=== PATIENT | female | born 1995 | race Caucasian/White ===

== ENCOUNTER 2024-02-17 17:14 | Emergency (ER) | payer OTHER ==
[~2024-02-17] VITALS: Ht 180.3 cm; Wt 59.0 kg
[2024-02-17] MEDS: ACETAMINOPHEN 500 MG TAB PO ONE (17:43)
[2024-02-17 18:39] LABS: Rapid Influenza A Negative (Negative); Rapid Influenza B Negative (Negative)
[2024-02-17 19:01] LABS: COVID19 ANTIGEN SOFIA FIA POSITIVE (NEGATIVE)
[2024-02-17 19:17] VITALS: TEMP 99.5
[2024-02-17 20:42] VITALS: BP 121/72; PULSE 112; RESP 18; O2SAT 99
[2024-02-17] MEDS ORDERED: BENZ100C97 PO (21:05)
== END 2024-02-17 21:19 | disposition home or self-care (01) ==
LOC: ER 17:14
DX: U07.1 COVID-19 (principal); Z88.0 Allergy status to penicillin; Z88.1 Allergy status to other antibiotic agents
CPT/HCPCS: 36415; 81025; 87426; 87804